=== PATIENT | male | born 1960 | race Caucasian/White ===

== ENCOUNTER 2016-11-09 13:36 | Inpatient (IN) | payer MEDICARE, OTHER ==
[~2016-11-09] VITALS: Ht 160 cm; Wt 60.4 kg
[~2016-11-09 13:36] MED LIST: DIVA125T PO
[2016-11-09] MEDS ORDERED: SODIUM CHLORIDE 0.9% 1,000 ML IV ONE (14:30)
[2016-11-09 14:45] LABS: BASOPHILS % (AUTO) 1.9 % (0.0-2.0); EOSINOPHILS % (AUTO) 0.7 % (1.0-6.0); HEMATOCRIT 38.5 % (41-53); HEMOGLOBIN 12.9 g/dL (13.5-17.5); LYMPHOCYTES # (AUTO) 1.1 K/uL (1.0-4.8); LYMPHOCYTES % (AUTO) 28.4 % (22.0-44.0); MEAN CORPUSCULAR HEMOGLOBIN 34.1 pg (26.0-34.0); MEAN CORPUSCULAR HGB CONC 33.3 G/dL (31.0-37.0); MEAN CORPUSCULAR VOLUME 102 fL (80-100); MONOCYTES # (AUTO) 0.4 K/uL (0.1-1.0); MONOCYTES % (AUTO) 10.5 % (2.0-9.0); NEUTROPHILS # (AUTO) 2.2 K/uL (1.8-7.7); NEUTROPHILS % (AUTO) 58.5 % (40.0-70.0); PLATELET COUNT (AUTO) 252 K/uL (150-450); RED BLOOD CELL COUNT(AUTO) 3.77 MIL/uL (4.50-5.90); RED CELL DISTRIBUTION WIDTH 14.6 % (11.5-14.5); WHITE BLOOD COUNT (AUTO) 3.8 K/uL (4.5-11.0)
[2016-11-09 14:57] LABS: ANION GAP 5 mmol/L (8-16); CARBON DIOXIDE 35 mmol/L (22-29); CHLORIDE 102 mmol/L (98-107); CREATININE 0.87 mg/dL (0.60-1.30); GLOMERULAR FILTR. RATE CALC > 60 mL/min (>60); POTASSIUM 3.6 mmol/L (3.5-5.1); SODIUM SERUM 142 mmol/L (136-145); UREA NITROGEN, BLOOD 12 mg/dL (7-18)
[2016-11-09 15:04] LABS: ALANINE AMINOTRANSFERASE 18 U/L (12-78); ASPARTATE AMINOTRANSFERASE 25 U/L (15-37); BILIRUBIN,TOTAL 0.1 mg/dL (0.1-1.0); TOTAL PROTEIN, SERUM 7.3 g/dL (6.4-8.2)
[2016-11-09 15:16] LABS: RBC MORPHOLOGY COMMENT ABNORMAL RBC MORPH
[2016-11-09] MEDS ORDERED: ACETAMINOPHEN 325 MG TABLET PO PRN (16:15)
[2016-11-09] MEDS ORDERED: ONDANSETRON HCL 4 MG/2 ML VIAL IVP PRN (16:15)
[2016-11-09] MEDS ORDERED: 0.9% SODIUM CHLORIDE 10 ML SYRINGE IVP PRN (16:15)
[2016-11-09 16:16] LABS: APPEARANCE,URINE CLOUDY (CLEAR); GLUCOSE, URINE (UA) NEGATIVE (NEGATIVE); KETONES,URINE NEGATIVE (NEGATIVE); LEUKOCYTE ESTERASE ,URINE NEGATIVE (NEGATIVE); OCCULT BLOOD,URINE NEGATIVE (NEGATIVE); PH,URINE 6.5 (5.0-8.0); PROTEIN,URINE NEGATIVE (NEGATIVE)
[2016-11-09] MEDS ORDERED: FLUD.1 PO (16:35)
[2016-11-09] MEDS ORDERED: TRAZ-144 PO (16:35)
[2016-11-09] MEDS ORDERED: ZOLP10 PO (16:35)
[2016-11-09] MEDS ORDERED: RISP2 PO (16:35)
[2016-11-09] MEDS ORDERED: KDUR10 PO (16:35)
[2016-11-09] MEDS ORDERED: LEVO150 PO (16:35)
[2016-11-09] MEDS ORDERED: FERS325 PO (16:35)
[2016-11-09] MEDS ORDERED: DIVA250T25 PO (16:35)
[2016-11-09 16:36] LABS: ADD UA MICROSCOPIC NO
[2016-11-09] MEDS ORDERED: LISI1TAB9 PO (17:08)
[2016-11-09] MEDS ORDERED: DOCU-174 PO (17:08)
[2016-11-09 17:29] VITALS: BP 151/77
[2016-11-09] MEDS: FERROUS SULFATE 325 MG EC TABLET PO SCH (18:18)
[2016-11-09 19:13] VITALS: BP 119/67
[2016-11-09] MEDS: RisperiDONE 2 MG TABLET PO SCH (20:19)
[2016-11-09] MEDS: DIVALPROEX SODIUM 500 MG DR TABLET PO SCH (20:19)
[2016-11-09] MEDS: DOCUSATE SODIUM 100 MG CAPSULE PO SCH (20:19)
[2016-11-09] MEDS: TraZODone HCL 50 MG TABLET PO SCH (20:19)
[2016-11-09 23:03] VITALS: BP 131/71
[2016-11-10 04:47] VITALS: BP 143/84
[2016-11-10] MEDS: LEVOTHYROXINE SODIUM 50 MCG TABLET PO SCH (05:58)
[2016-11-10 06:15] LABS: BASOPHILS % (AUTO) 2.4 % (0.0-2.0); HEMATOCRIT 37.7 % (41-53); HEMOGLOBIN 12.3 g/dL (13.5-17.5); LYMPHOCYTES # (AUTO) 1.5 K/uL (1.0-4.8); LYMPHOCYTES % (AUTO) 38.9 % (22.0-44.0); MEAN CORPUSCULAR HEMOGLOBIN 33.4 pg (26.0-34.0); MEAN CORPUSCULAR HGB CONC 32.6 G/dL (31.0-37.0); MEAN CORPUSCULAR VOLUME 102 fL (80-100); MONOCYTES # (AUTO) 0.6 K/uL (0.1-1.0); MONOCYTES % (AUTO) 15.2 % (2.0-9.0); NEUTROPHILS # (AUTO) 1.6 K/uL (1.8-7.7); NEUTROPHILS % (AUTO) 42.5 % (40.0-70.0); PLATELET COUNT (AUTO) 240 K/uL (150-450); RED BLOOD CELL COUNT(AUTO) 3.69 MIL/uL (4.50-5.90); RED CELL DISTRIBUTION WIDTH 14.5 % (11.5-14.5); WHITE BLOOD COUNT (AUTO) 3.8 K/uL (4.5-11.0)
[2016-11-10 06:47] LABS: CARBON DIOXIDE 32 mmol/L (22-29); CHLORIDE 106 mmol/L (98-107); POTASSIUM 3.4 mmol/L (3.5-5.1); SODIUM SERUM 144 mmol/L (136-145)
[2016-11-10 06:48] LABS: ALANINE AMINOTRANSFERASE 18 U/L (12-78); ALBUMIN 2.9 g/dL (3.4-5.0); ANION GAP 6 mmol/L (8-16); ASPARTATE AMINOTRANSFERASE 19 U/L (15-37); BILIRUBIN,TOTAL 0.2 mg/dL (0.1-1.0); CALCIUM, TOTAL 7.8 mg/dL (8.8-10.5); CHOL/HDL RATIO 2.7 (4.2-7.3); CREATININE 0.77 mg/dL (0.60-1.30); GLOMERULAR FILTR. RATE CALC > 60 mL/min (>60); THYROID STIMULATING HORMONE 5.98 uIU/mL (0.36-3.74); TOTAL PROTEIN, SERUM 7.1 g/dL (6.4-8.2); UREA NITROGEN, BLOOD 11 mg/dL (7-18)
[2016-11-10 07:28] VITALS: BP 120/74
[2016-11-10 08:00] LABS: RBC MORPHOLOGY COMMENT ABNORMAL RBC MORPH
[2016-11-10] MEDS: FERROUS SULFATE 325 MG EC TABLET PO SCH ×2 (08:33→17:56)
[2016-11-10] MEDS: ASPIRIN 81 MG CHEWABLE TABLET PO SCH (08:33)
[2016-11-10] MEDS: FLUDROCORTISONE ACETATE 0.1 MG TABLET PO SCH (08:34)
[2016-11-10] MEDS: DIVALPROEX SODIUM 500 MG DR TABLET PO SCH ×2 (08:34→20:47)
[2016-11-10] MEDS: RisperiDONE 2 MG TABLET PO SCH ×2 (08:34→20:47)
[2016-11-10] MEDS: ACETAMINOPHEN 325 MG TABLET PO PRN ×2 (08:34→20:47)
[2016-11-10] MEDS: POTASSIUM CHLORIDE 8 MEQ ER TABLET PO SCH (08:34)
[2016-11-10 10:40] VITALS: BP 109/59
[2016-11-10 17:45] VITALS: BP 138/78
[2016-11-10 20:14] VITALS: BP 110/66
[2016-11-10] MEDS: TraZODone HCL 50 MG TABLET PO SCH (20:47)
[2016-11-10] MEDS: DOCUSATE SODIUM 100 MG CAPSULE PO SCH (20:47)
[2016-11-10 23:48] VITALS: BP 126/70
[2016-11-11 04:42] VITALS: BP 119/71
[2016-11-11] MEDS: LEVOTHYROXINE SODIUM 50 MCG TABLET PO SCH (05:12)
[2016-11-11 06:32] LABS: ANION GAP 4 mmol/L (8-16); CALCIUM, TOTAL 8.3 mg/dL (8.8-10.5); CARBON DIOXIDE 33 mmol/L (22-29); CHLORIDE 105 mmol/L (98-107); CREATININE 0.93 mg/dL (0.60-1.30); GLOMERULAR FILTR. RATE CALC > 60 mL/min (>60); POTASSIUM 3.6 mmol/L (3.5-5.1); SODIUM SERUM 142 mmol/L (136-145); UREA NITROGEN, BLOOD 10 mg/dL (7-18)
[2016-11-11 06:34] LABS: BASOPHILS # (AUTO) 0.06 K/uL (0.00-0.20); BASOPHILS % (AUTO) 1.9 % (0.0-2.0); EOSINOPHILS # (AUTO) 0.02 K/uL (0.00-0.70); EOSINOPHILS % (AUTO) 0.67 % (1.0-6.0); HEMATOCRIT 39.8 % (41-53); HEMOGLOBIN 13.3 g/dL (13.5-17.5); LYMPHOCYTES # (AUTO) 1.3 K/uL (1.0-4.8); LYMPHOCYTES % (AUTO) 37.9 % (22.0-44.0); MEAN CORPUSCULAR HEMOGLOBIN 34.1 pg (26.0-34.0); MEAN CORPUSCULAR HGB CONC 33.3 G/dL (31.0-37.0); MEAN CORPUSCULAR VOLUME 102 fL (80-100); MONOCYTES # (AUTO) 0.4 K/uL (0.1-1.0); MONOCYTES % (AUTO) 12.9 % (2.0-9.0); NEUTROPHILS # (AUTO) 1.6 K/uL (1.8-7.7); NEUTROPHILS % (AUTO) 46.6 % (40.0-70.0); PLATELET COUNT (AUTO) 247 K/uL (150-450); RED BLOOD CELL COUNT(AUTO) 3.88 MIL/uL (4.50-5.90); RED CELL DISTRIBUTION WIDTH 14.4 % (11.5-14.5); WHITE BLOOD COUNT (AUTO) 3.3 K/uL (4.5-11.0)
[2016-11-11 07:17] VITALS: BP 121/83
[2016-11-11] MEDS: RisperiDONE 2 MG TABLET PO SCH ×2 (08:12→21:28)
[2016-11-11] MEDS: ASPIRIN 81 MG CHEWABLE TABLET PO SCH (08:12)
[2016-11-11] MEDS: FLUDROCORTISONE ACETATE 0.1 MG TABLET PO SCH (08:12)
[2016-11-11] MEDS: FERROUS SULFATE 325 MG EC TABLET PO SCH ×2 (08:12→17:46)
[2016-11-11] MEDS: DIVALPROEX SODIUM 500 MG DR TABLET PO SCH ×2 (08:12→21:28)
[2016-11-11] MEDS: POTASSIUM CHLORIDE 8 MEQ ER TABLET PO SCH (08:13)
[2016-11-11 11:28] VITALS: BP 118/67
[2016-11-11 14:51] VITALS: BP 132/67
[2016-11-11 19:28] VITALS: BP 145/78
[2016-11-11] MEDS: ZOLPIDEM TARTRATE 10 MG TABLET PO PRN (21:28)
[2016-11-11] MEDS: DOCUSATE SODIUM 100 MG CAPSULE PO SCH (21:28)
[2016-11-11] MEDS: TraZODone HCL 50 MG TABLET PO SCH (21:28)
[2016-11-11 23:19] VITALS: BP 138/75
[2016-11-12 04:39] VITALS: BP 147/77
[2016-11-12] MEDS: LEVOTHYROXINE SODIUM 50 MCG TABLET PO SCH (06:15)
[2016-11-12 07:39] VITALS: BP 158/70
[2016-11-12] MEDS: FERROUS SULFATE 325 MG EC TABLET PO SCH ×2 (08:14→18:29)
[2016-11-12] MEDS: DIVALPROEX SODIUM 500 MG DR TABLET PO SCH ×2 (08:14→20:41)
[2016-11-12] MEDS: ASPIRIN 81 MG CHEWABLE TABLET PO SCH (08:14)
[2016-11-12] MEDS: FLUDROCORTISONE ACETATE 0.1 MG TABLET PO SCH (08:15)
[2016-11-12] MEDS: POTASSIUM CHLORIDE 8 MEQ ER TABLET PO SCH (08:15)
[2016-11-12] MEDS: RisperiDONE 2 MG TABLET PO SCH ×2 (08:15→20:41)
[2016-11-12 11:22] VITALS: BP 160/68
[2016-11-12 15:00] VITALS: BP 148/68
[2016-11-12 19:34] VITALS: BP 114/67
[2016-11-12] MEDS: TraZODone HCL 50 MG TABLET PO SCH (20:41)
[2016-11-12] MEDS: ZOLPIDEM TARTRATE 10 MG TABLET PO PRN (20:41)
[2016-11-12] MEDS: DOCUSATE SODIUM 100 MG CAPSULE PO SCH (20:41)
[2016-11-12 20:58] LABS: HEMOGLOBIN A1C 5.4 % (4.5-6.2)
[2016-11-12 21:06] LABS: CHOL/HDL RATIO 3.2 (4.2-7.3); THYROID STIMULATING HORMONE 5.96 uIU/mL (0.36-3.74)
[2016-11-12 23:47] VITALS: BP 122/73
[2016-11-13 04:31] VITALS: BP 133/55
[2016-11-13] MEDS: LEVOTHYROXINE SODIUM 50 MCG TABLET PO SCH (06:08)
[2016-11-13 08:01] VITALS: BP 120/84
[2016-11-13] MEDS: POTASSIUM CHLORIDE 8 MEQ ER TABLET PO SCH (09:27)
[2016-11-13] MEDS: ASPIRIN 81 MG CHEWABLE TABLET PO SCH (09:27)
[2016-11-13] MEDS: RisperiDONE 2 MG TABLET PO SCH ×2 (09:27→20:29)
[2016-11-13] MEDS: FERROUS SULFATE 325 MG EC TABLET PO SCH ×2 (09:27→18:19)
[2016-11-13] MEDS: DIVALPROEX SODIUM 500 MG DR TABLET PO SCH ×2 (09:27→20:29)
[2016-11-13] MEDS: FLUDROCORTISONE ACETATE 0.1 MG TABLET PO SCH (09:27)
[2016-11-13] MEDS ORDERED: GADOBUTROL 1 MMOL/ML 10 ML VIAL IVP ONE (09:35)
[2016-11-13 12:36] VITALS: BP 98/67
[2016-11-13 16:17] VITALS: BP 144/77
[2016-11-13] MEDS: ACETAMINOPHEN 325 MG TABLET PO PRN (19:37)
[2016-11-13 20:12] VITALS: BP 110/68
[2016-11-13] MEDS: DOCUSATE SODIUM 100 MG CAPSULE PO SCH (20:29)
[2016-11-13] MEDS: TraZODone HCL 50 MG TABLET PO SCH (20:29)
[2016-11-13] MEDS: ZOLPIDEM TARTRATE 10 MG TABLET PO PRN (20:29)
[2016-11-13 23:17] VITALS: BP 115/50
[2016-11-14 04:46] VITALS: BP 134/76
[2016-11-14] MEDS: LEVOTHYROXINE SODIUM 50 MCG TABLET PO SCH (06:00)
[2016-11-14 07:24] VITALS: BP 120/68
[2016-11-14] MEDS: DIVALPROEX SODIUM 500 MG DR TABLET PO SCH (08:16)
[2016-11-14] MEDS: ASPIRIN 81 MG CHEWABLE TABLET PO SCH (08:16)
[2016-11-14] MEDS: FERROUS SULFATE 325 MG EC TABLET PO SCH (08:16)
[2016-11-14] MEDS: FLUDROCORTISONE ACETATE 0.1 MG TABLET PO SCH (08:17)
[2016-11-14] MEDS: RisperiDONE 2 MG TABLET PO SCH (08:17)
[2016-11-14] MEDS: POTASSIUM CHLORIDE 8 MEQ ER TABLET PO SCH (08:17)
[2016-11-14 11:39] VITALS: BP 132/72
[2016-11-14] MEDS ORDERED: ZOLP10 PO (13:43)
[2016-11-14] MEDS ORDERED: ASPI81 PO (15:24)
== END 2016-11-14 16:15 | disposition home or self-care (01) | DRG 69 ==
LOC: EMS 13:40 → 5S 16:26
PROVIDERS: ADMIT Family Medicine; ATTEND Family Medicine
PROC: 3E0234Z Introduction of Serum, Toxoid and Vaccine into Muscle, Percutaneous Approach (ICD-10-PCS; principal; 2016-11-09)
DX: G45.9 Transient cerebral ischemic attack, unspecified (principal); G40.909 Epilepsy, unspecified, not intractable, without status epilepticus; E03.9 Hypothyroidism, unspecified; J11.1 Influenza due to unidentified influenza virus with other respiratory manifestations; Q90.9 Down syndrome, unspecified; Z23 Encounter for immunization; Z79.82 Long term (current) use of aspirin
CPT/HCPCS: 70450; 70553; 82607; 82746; 83036; 83735; 84443; 92610; 93005; 93306; 93880; 96360; 96361; 97161; 97165; 99291; A9585; J7030

== ENCOUNTER 2020-05-10 05:42 | Inpatient (IN) | payer MEDICARE, OTHER ==
[~2020-05-10] VITALS: Ht 170.2 cm; Wt 53.2 kg
[~2020-05-10 05:42] MED LIST changes: +ASPI-728 PO; +DIVA-111 PO; -DIVA125T PO; +DOCU100C33 PO; +FERR-89 PO; +FLUD.1 PO; +LEVO150 PO; +LISI1TAB9 PO; +POTA-92 PO; +RISP2TAB23 PO; +TRAZ-252 PO; +ZOLP10TA8 PO
[2020-05-10] MEDS ORDERED: ACETAMINOPHEN 1000 MG/ISO-OSM 100 ML IV ONE (06:15)
[2020-05-10] MEDS ORDERED: PIPERACILLIN/TAZO 3.375 GM/D5W 50 ML IV ONE (06:15)
[2020-05-10] MEDS ORDERED: 0.9% SODIUM CHLORIDE 10 ML SYRINGE IVP PRN ×2 (06:15→08:00)
[2020-05-10] MEDS ORDERED: VANCOMYCIN HCL 1 GM/D5% WATER 200 ML IV ONE (06:15)
[2020-05-10] MEDS ORDERED: SODIUM CHLORIDE 0.9% 1,000 ML IV ONE (06:15)
[2020-05-10 06:16] LABS: BASOPHILS % (AUTO) 0.9 % (0.0-2.0); EOSINOPHILS % (AUTO) 0.1 % (1.0-6.0); HEMATOCRIT 30.9 % (41-53); HEMOGLOBIN 10.6 g/dL (13.5-17.5); LYMPHOCYTES # (AUTO) 1.5 K/uL (1.0-4.8); LYMPHOCYTES % (AUTO) 10.4 % (22.0-44.0); MEAN CORPUSCULAR HEMOGLOBIN 33.6 pg (26.0-34.0); MEAN CORPUSCULAR HGB CONC 34.3 G/dL (31.0-37.0); MEAN CORPUSCULAR VOLUME 98 fL (80-100); MONOCYTES # (AUTO) 1.3 K/uL (0.1-1.0); MONOCYTES % (AUTO) 8.9 % (2.0-9.0); NEUTROPHILS # (AUTO) 11.7 K/uL (1.8-7.7); NEUTROPHILS % (AUTO) 79.7 % (40.0-70.0); PLATELET COUNT (AUTO) 447 K/uL (150-450); RED BLOOD CELL COUNT(AUTO) 3.16 MIL/uL (4.50-5.90); RED CELL DISTRIBUTION WIDTH 15.1 % (11.5-14.5)
[2020-05-10 06:26] LABS: CALCIUM, TOTAL 9.6 mg/dL (8.8-10.5); CREATININE 1.43 mg/dL (0.60-1.30); POTASSIUM 4.9 mmol/L (3.5-5.1)
[2020-05-10 06:30] LABS: D-DIMER 1.62 mg/L FEU (0.00-0.50); INR 1.2 (0.9-1.1); PROTHROMBIN TIME 12.3 SEC (9.4-11.6)
[2020-05-10 06:34] LABS: LACTIC ACID 1.2 mmol/L (0.4-2.0)
[2020-05-10 06:43] LABS: COVID AG,FIA SOURCE NASOPHARYNGEAL
[2020-05-10] MEDS ORDERED: IOVERSOL 350 MG/ML 100 ML VIAL ONE (06:46)
[2020-05-10] MEDS ORDERED: SODIUM CHLORIDE 0.9% 100 ML ONE (06:47)
[2020-05-10 07:01] LABS: APPEARANCE,URINE CLOUDY (CLEAR); BILIRUBIN,URINE NEGATIVE (NEGATIVE); GLUCOSE, URINE (UA) NEGATIVE (NEGATIVE); KETONES,URINE TRACE mg/dL (NEGATIVE); LEUKOCYTE ESTERASE ,URINE SMALL (NEGATIVE); NITRATE,URINE NEGATIVE (NEGATIVE); PROTEIN,URINE NEGATIVE (NEGATIVE); UROBILINOGEN,URINE 0.2 mg/dL (<=1.0)
[2020-05-10 07:05] LABS: ALBUMIN 2.3 g/dL (3.4-5.0); BILIRUBIN,TOTAL 0.4 mg/dL (0.1-1.0); C-REACTIVE PROTEIN QUANT 10.89 mg/dL (0.00-0.30); PHOSPHORUS 3.5 mg/dL (2.5-4.9); TOTAL PROTEIN, SERUM 8.7 g/dL (6.4-8.2)
[2020-05-10 07:06] LABS: INFLUENZA TYPE A NEGATIVE FOR TYPE A (NEGATIVE); INFLUENZA TYPE B NEGATIVE FOR TYPE B (NEGATIVE)
[2020-05-10 07:15] LABS: OCCULT BLOOD,URINE MODERATE (NEGATIVE)
[2020-05-10 07:17] LABS: BACTERIA,URINE Few /HPF (None Seen); SQUAMOUS EPITHELIAL CELL,UR Rare /LPF (None Seen)
[2020-05-10] MEDS ORDERED: AZITHROMYCIN 500 MG/NS 250 ML IV ONE (07:30)
[2020-05-10] MEDS ORDERED: ACETAMINOPHEN 325 MG TABLET PO PRN (08:00)
[2020-05-10] MEDS ORDERED: SODIUM CHLORIDE 0.9% 500 ML IV ONE (08:15)
[2020-05-10] MEDS ORDERED: NOREPINEPHRINE 4 MG/D5%-WATER 250 ML IV ONE (09:25)
[2020-05-10] MEDS ORDERED: NOREPINEPHRINE 4 MG/D5%-WATER 250 ML IV PRN (09:30)
[2020-05-10] MEDS ORDERED: HYDROCORTISONE SOD SUCC 100 MG/2 ML VIAL IVP ONE (09:30)
[2020-05-10] MEDS: CefTRIAXone SODIUM 2 GM in DEXTROSE 5%-WATER 50 ML IV SCH (12:11)
[2020-05-10] MEDS: DOXYCYCLINE HYCLATE 100 MG in DEXTROSE 5%-WATER 100 ML IV SCH (12:11)
[2020-05-10 13:48] LABS: GLUCOSE,POINT OF CARE 146 MG/DL (70-110)
[2020-05-10] MEDS ORDERED: DIVA-112 PO (17:59)
[2020-05-10] MEDS ORDERED: LISI-657 PO (17:59)
[2020-05-10] MEDS ORDERED: LEVO50 PO (17:59)
[2020-05-10] MEDS ORDERED: POTA8TAB71 PO (17:59)
[2020-05-10] MEDS ORDERED: ZOLPIDEM TARTRATE 10 MG TABLET PO PRN (18:00)
[2020-05-10] MEDS: PIPERACILLIN/TAZO 3.375 GM/D5W 50 ML IV SCH (18:33)
[2020-05-10 23:21] VITALS: BP 130/72
[2020-05-11] MEDS: PIPERACILLIN/TAZO 3.375 GM/D5W 50 ML IV SCH ×5 (03:26→23:12)
[2020-05-11] MEDS: DOXYCYCLINE HYCLATE 100 MG in DEXTROSE 5%-WATER 100 ML IV SCH ×2 (03:26→14:13)
[2020-05-11] MEDS: DOCUSATE SODIUM 100 MG CAPSULE PO SCH ×2 (03:27→21:00)
[2020-05-11] MEDS: RisperiDONE 2 MG TABLET PO SCH ×3 (03:27→21:00)
[2020-05-11] MEDS: DIVALPROEX SODIUM 500 MG DR TABLET PO SCH ×3 (03:28→21:00)
[2020-05-11] MEDS: TraZODone HCL 50 MG TABLET PO SCH ×2 (03:28→21:00)
[2020-05-11 03:50] VITALS: BP 121/50
[2020-05-11] MEDS: LEVOTHYROXINE SODIUM 50 MCG TABLET PO SCH (06:07)
[2020-05-11 06:56] LABS: BASOPHILS % (AUTO) 0.4 % (0.0-2.0); EOSINOPHILS % (AUTO) 0 % (1.0-6.0); HEMATOCRIT 27.1 % (41-53); HEMOGLOBIN 8.8 g/dL (13.5-17.5); LYMPHOCYTES % (AUTO) 6.4 % (22.0-44.0); MEAN CORPUSCULAR HGB CONC 32.5 G/dL (31.0-37.0); MEAN CORPUSCULAR VOLUME 98 fL (80-100); MONOCYTES # (AUTO) 1.8 K/uL (0.1-1.0); MONOCYTES % (AUTO) 11.7 % (2.0-9.0); NEUTROPHILS # (AUTO) 12.4 K/uL (1.8-7.7); NEUTROPHILS % (AUTO) 81.5 % (40.0-70.0); PLATELET COUNT (AUTO) 405 K/uL (150-450); RED BLOOD CELL COUNT(AUTO) 2.75 MIL/uL (4.50-5.90); RED CELL DISTRIBUTION WIDTH 14.9 % (11.5-14.5)
[2020-05-11 07:21] LABS: ALBUMIN 1.9 g/dL (3.4-5.0); BILIRUBIN,TOTAL 0.1 mg/dL (0.1-1.0); CALCIUM, TOTAL 8.8 mg/dL (8.8-10.5); CREATININE 1.34 mg/dL (0.60-1.30); TOTAL PROTEIN, SERUM 6.5 g/dL (6.4-8.2)
[2020-05-11 07:45] VITALS: BP 106/67
[2020-05-11 08:23] LABS: CORRECTED WHITE BLOOD COUNT 15.2 K/uL (4.5-11.0)
[2020-05-11] MEDS: ASPIRIN 81 MG CHEWABLE TABLET PO SCH (08:32)
[2020-05-11] MEDS: FERROUS SULFATE 325 MG EC TABLET PO SCH ×2 (08:33→17:08)
[2020-05-11] MEDS: POTASSIUM CHLORIDE 8 MEQ ER TABLET PO SCH (08:33)
[2020-05-11] MEDS: FLUDROCORTISONE ACETATE 0.1 MG TABLET PO SCH (08:33)
[2020-05-11] MEDS ORDERED: HYDROCHLOROTHIAZIDE 25 MG TABLET PO SCH (09:00)
[2020-05-11] MEDS ORDERED: LISINOPRIL 10 MG TABLET PO SCH (09:00)
[2020-05-11] MEDS ORDERED: POTASSIUM CHL 10 MEQ/WATER 50 ML IV PRN (10:15)
[2020-05-11 11:30] VITALS: BP 104/58
[2020-05-11] MEDS: POTASSIUM CHLORIDE 20 MEQ ER TABLET PO PRN (12:33)
[2020-05-11] MEDS: CefTRIAXone SODIUM 2 GM in DEXTROSE 5%-WATER 50 ML IV SCH (13:26)
[2020-05-11 16:30] VITALS: BP 99/48
[2020-05-11] MEDS ORDERED: SODIUM CHLORIDE 0.9% 500 ML IV ONE ×2 (19:15→21:30)
[2020-05-11 19:29] LABS: ABG A-A DIFF O2 171.5 mmHg (10-20.0); ABG CARBOXYHEMOGLOBIN 0.1 % (0.0-1.5); ABG HCO3 27.8 mmol/L (22.0-26.0); ABG METHEMOGLOBIN 0.3 % (0.0-1.5); ABG OXYGEN CONTENT 12.4 mL/dL (15.0-23.0); ABG OXYGEN SATURATION 97.2 % (95.0-98.0); ABG OXYHEMOGLOBIN 96.8 % (94.0-100.0); ABG PCO2 43 mmHg (35-45); ABG PH 7.438 (7.35-7.450); PO2, ARTERIAL BG 93.5 mmHg (79.0-87.0); SITE, BLOOD GAS RT RADIAL; SOURCE, BLOOD GAS ARTERIAL; TEMPERATURE, FAHRENHEIT, BG 98.6 FAHREN (96.0-98.6)
[2020-05-11 20:15] VITALS: BP 88/50
[2020-05-11 20:28] LABS: LACTIC ACID 1.1 mmol/L (0.4-2.0)
[2020-05-11 20:44] LABS: GLUCOMETER DEV NAME(LOC) 5S.2B; GLUCOSE,POINT OF CARE 99 MG/DL (70-110)
[2020-05-11] MEDS ORDERED: SODIUM CHLORIDE 0.9% 1,000 ML ONE (21:20)
[2020-05-11 21:31] LABS: ANION GAP 5 mmol/L (8-16); CALCIUM, TOTAL 8.1 mg/dL (8.8-10.5); CARBON DIOXIDE 30 mmol/L (22-29); CHLORIDE 108 mmol/L (98-107); CREATININE 1.14 mg/dL (0.60-1.30); GLOMERULAR FILTR. RATE CALC > 60 mL/min (>60); GLUCOSE,RANDOM 111 mg/dL (70-110); POTASSIUM 3.2 mmol/L (3.5-5.1); SODIUM SERUM 143 mmol/L (136-145); UREA NITROGEN, BLOOD 11 mg/dL (7-18)
[2020-05-11 21:36] LABS: ALANINE AMINOTRANSFERASE 21 U/L (12-78); ALBUMIN 1.7 g/dL (3.4-5.0); ALKALINE PHOSPHATASE 52 U/L (46-116); ASPARTATE AMINOTRANSFERASE 23 U/L (15-37); BILIRUBIN,TOTAL 0.2 mg/dL (0.1-1.0); TOTAL PROTEIN, SERUM 6.1 g/dL (6.4-8.2)
[2020-05-11 21:45] LABS: EOSINOPHILS % (AUTO) 0.1 % (1.0-6.0); HEMATOCRIT 26.1 % (41-53); HEMOGLOBIN 8.3 g/dL (13.5-17.5); LYMPHOCYTES # (AUTO) 1.3 K/uL (1.0-4.8); LYMPHOCYTES % (AUTO) 10.4 % (22.0-44.0); MEAN CORPUSCULAR HEMOGLOBIN 31.5 pg (26.0-34.0); MEAN CORPUSCULAR VOLUME 98 fL (80-100); MONOCYTES # (AUTO) 1.6 K/uL (0.1-1.0); MONOCYTES % (AUTO) 12.5 % (2.0-9.0); NEUTROPHILS # (AUTO) 9.8 K/uL (1.8-7.7); PLATELET COUNT (AUTO) 368 K/uL (150-450); RED BLOOD CELL COUNT(AUTO) 2.65 MIL/uL (4.50-5.90); RED CELL DISTRIBUTION WIDTH 14.9 % (11.5-14.5)
[2020-05-11] MEDS ORDERED: SODIUM CHLORIDE 0.9% 1,000 ML IV SCH ×2 (22:00→22:15)
[2020-05-11] MEDS ORDERED: POTASSIUM CHLORIDE 20 MEQ ER TABLET PO ONE (22:15)
[2020-05-11] MEDS: SODIUM CHLORIDE 0.45% 1,000 ML IV SCH (23:01)
[2020-05-11 23:58] VITALS: BP 96/52
[2020-05-12] MEDS: DOXYCYCLINE HYCLATE 100 MG in DEXTROSE 5%-WATER 100 ML IV SCH ×2 (00:52→13:22)
[2020-05-12 03:25] VITALS: BP 96/61
[2020-05-12] MEDS: PIPERACILLIN/TAZO 3.375 GM/D5W 50 ML IV SCH ×4 (06:21→23:38)
[2020-05-12] MEDS: LEVOTHYROXINE SODIUM 50 MCG TABLET PO SCH (06:21)
[2020-05-12 08:12] VITALS: BP 102/59
[2020-05-12] MEDS: FLUDROCORTISONE ACETATE 0.1 MG TABLET PO SCH (08:34)
[2020-05-12] MEDS: DIVALPROEX SODIUM 500 MG DR TABLET PO SCH ×2 (08:34→20:40)
[2020-05-12] MEDS: ASPIRIN 81 MG CHEWABLE TABLET PO SCH (08:34)
[2020-05-12] MEDS: POTASSIUM CHLORIDE 8 MEQ ER TABLET PO SCH (08:34)
[2020-05-12] MEDS: FERROUS SULFATE 325 MG EC TABLET PO SCH ×2 (08:34→18:09)
[2020-05-12] MEDS: RisperiDONE 2 MG TABLET PO SCH ×2 (08:34→20:40)
[2020-05-12] MEDS: SODIUM CHLORIDE 0.45% 1,000 ML IV SCH ×2 (10:33→22:41)
[2020-05-12] MEDS: CefTRIAXone SODIUM 2 GM in DEXTROSE 5%-WATER 50 ML IV SCH (11:38)
[2020-05-12 11:55] VITALS: BP 105/67
[2020-05-12 15:22] VITALS: BP 105/64
[2020-05-12 15:25] LABS: ANION GAP 6 mmol/L (8-16); CALCIUM, TOTAL 8.4 mg/dL (8.8-10.5); CARBON DIOXIDE 32 mmol/L (22-29); CHLORIDE 104 mmol/L (98-107); CREATININE 1.14 mg/dL (0.60-1.30); GLOMERULAR FILTR. RATE CALC > 60 mL/min (>60); GLUCOSE,RANDOM 142 mg/dL (70-110); POTASSIUM 3.4 mmol/L (3.5-5.1); SODIUM SERUM 142 mmol/L (136-145); UREA NITROGEN, BLOOD 7 mg/dL (7-18)
[2020-05-12 15:30] LABS: ALANINE AMINOTRANSFERASE 21 U/L (12-78); ALBUMIN 1.8 g/dL (3.4-5.0); ALKALINE PHOSPHATASE 52 U/L (46-116); ASPARTATE AMINOTRANSFERASE 27 U/L (15-37); BILIRUBIN,TOTAL 0.2 mg/dL (0.1-1.0); TOTAL PROTEIN, SERUM 6.5 g/dL (6.4-8.2)
[2020-05-12] MEDS: POTASSIUM CHLORIDE 20 MEQ ER TABLET PO PRN (18:09)
[2020-05-12 20:00] VITALS: BP 95/56
[2020-05-12 20:01] LABS: BASOPHILS % (AUTO) 1.4 % (0.0-2.0); EOSINOPHILS % (AUTO) 0.5 % (1.0-6.0); HEMATOCRIT 28.3 % (41-53); HEMOGLOBIN 9.4 g/dL (13.5-17.5); LYMPHOCYTES # (AUTO) 1.6 K/uL (1.0-4.8); LYMPHOCYTES % (AUTO) 18.5 % (22.0-44.0); MEAN CORPUSCULAR HEMOGLOBIN 32.7 pg (26.0-34.0); MEAN CORPUSCULAR HGB CONC 33.4 G/dL (31.0-37.0); MEAN CORPUSCULAR VOLUME 98 fL (80-100); MONOCYTES # (AUTO) 1.2 K/uL (0.1-1.0); MONOCYTES % (AUTO) 13.8 % (2.0-9.0); NEUTROPHILS # (AUTO) 5.8 K/uL (1.8-7.7); NEUTROPHILS % (AUTO) 65.8 % (40.0-70.0); PLATELET COUNT (AUTO) 388 K/uL (150-450); RED BLOOD CELL COUNT(AUTO) 2.89 MIL/uL (4.50-5.90); RED CELL DISTRIBUTION WIDTH 14.9 % (11.5-14.5)
[2020-05-12] MEDS: DOCUSATE SODIUM 100 MG CAPSULE PO SCH (20:40)
[2020-05-12] MEDS: TraZODone HCL 50 MG TABLET PO SCH (20:40)
[2020-05-12 23:44] VITALS: BP 120/62
[2020-05-13] MEDS: DOXYCYCLINE HYCLATE 100 MG in DEXTROSE 5%-WATER 100 ML IV SCH (01:29)
[2020-05-13 05:10] VITALS: BP 133/68
[2020-05-13] MEDS: PIPERACILLIN/TAZO 3.375 GM/D5W 50 ML IV SCH (05:22)
[2020-05-13] MEDS: LEVOTHYROXINE SODIUM 50 MCG TABLET PO SCH (05:42)
[2020-05-13 08:27] VITALS: BP 135/74
[2020-05-13] MEDS: DIVALPROEX SODIUM 500 MG DR TABLET PO SCH (08:39)
[2020-05-13] MEDS: POTASSIUM CHLORIDE 8 MEQ ER TABLET PO SCH (08:39)
[2020-05-13] MEDS: RisperiDONE 2 MG TABLET PO SCH (08:39)
[2020-05-13] MEDS: ASPIRIN 81 MG CHEWABLE TABLET PO SCH (08:39)
[2020-05-13] MEDS: FERROUS SULFATE 325 MG EC TABLET PO SCH ×2 (08:39→18:00)
[2020-05-13] MEDS: FLUDROCORTISONE ACETATE 0.1 MG TABLET PO SCH (08:39)
[2020-05-13] MEDS: SODIUM CHLORIDE 0.45% 1,000 ML IV SCH (09:04)
[2020-05-13] MEDS ORDERED: LEVO-72 PO (10:49)
[2020-05-14] MEDS ORDERED: LEVOFLOXACIN 500 MG TABLET PO SCH (09:00)
== END 2020-05-13 19:00 | DRG 871 ==
LOC: EMS 05:42 → 5N 09:18 → 5S 05-11 18:35
PROVIDERS: ADMIT Internal Medicine; ATTEND Internal Medicine
DX: A41.9 Sepsis, unspecified organism (principal); J69.0 Pneumonitis due to inhalation of food and vomit; J96.01 Acute respiratory failure with hypoxia; E43 Unspecified severe protein-calorie malnutrition; N17.9 Acute kidney failure, unspecified; Z68.1 Body mass index [BMI] 19.9 or less, adult; G40.909 Epilepsy, unspecified, not intractable, without status epilepticus; Z20.828 Contact with and (suspected) exposure to other viral communicable diseases; E03.9 Hypothyroidism, unspecified; I10 Essential (primary) hypertension; I95.9 Hypotension, unspecified; Q90.9 Down syndrome, unspecified; Z91.018 Allergy to other foods; Z79.899 Other long term (current) drug therapy; Z79.82 Long term (current) use of aspirin
CPT/HCPCS: 36600; 70450; 71275; 82248; 82728; 82805; 83605; 83735; 84100; 84132; 84145; 85379; 86140; 87040; 87426; 87804; 92523; 92526; 93005; 93306; 99291; J0131; J0456; J0696; J1720; J2543; J3370; J3490; J7030; J7040; J7050; J7060; 36415-L1; 36415-TC; 71045-TC; U0003-CS